=== PATIENT | female | born 1990 | race Caucasian/White ===

== ENCOUNTER 2018-06-10 18:51 | Emergency (ER) | payer SELFPAY ==
[~2018-06-10] VITALS: Ht 154.9 cm; Wt 63.5 kg
[~2018-06-10 18:51] MED LIST: IBUPROFEN PRN PAIN
[2018-06-10 19:03] VITALS: BP 148/103
--- NOTE | 2018-06-10 19:23 | NUR ---
PATIENT AMBULATED TO ER BED 5.
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
[2018-06-10] MEDS ORDERED: LIDOCAINE 1% 500 MG/50 ML VIAL INJ SCH (20:10)
[2018-06-10] MEDS ORDERED: LIDOCAINE MPF 1% - 5 mL VIAL 5 ML ONE (20:25)
[2018-06-10 21:00] VITALS: BP 133/81
--- NOTE | 2018-06-10 21:00 | NUR ---
Patient discharged with v/s stable. Written and verbal after care instructions given and explained. Patient verbalized understanding. Ambulatory with steady gait. All questions addressed prior to discharge. Advised to follow up with PMD.
== END 2018-06-10 21:00 | disposition home or self-care (01) ==
LOC: MED 18:51
DX: S61.512A Laceration without foreign body of left wrist, initial encounter (principal); Z79.899 Other long term (current) drug therapy; W22.8XXA Striking against or struck by other objects, initial encounter; Y93.89 Activity, other specified; Y92.89 Other specified places as the place of occurrence of the external cause; Y99.8 Other external cause status
CPT/HCPCS: 12002; 90471; 90715; 99283; J2001